=== PATIENT | male | born 1985 | race Two or more races ===

== ENCOUNTER 2018-09-22 04:35 | Emergency (ER) | payer SELFPAY ==
[2018-09-22 04:43] VITALS: BMI 27.3
[2018-09-22] MEDS ORDERED: Sodium Chloride 0.9% 1,000 ML IV STA (05:01)
--- NOTE | 2018-09-22 05:07 | ED PDOC ---
HPI: Psych/Substance Abuse Time Seen by Provider: 09/22/18 04:42 Chief Complaint (Nursing): Alcohol Ingestion Chief Complaint (Provider): Nausea, Vomiting, Alcohol Ingestion History Per: Patient, EMS History/Exam Limitations: no limitations Onset/Duration Of Symptoms: Days (x8) Current Symptoms Are (Timing): Still Present Additional Complaint(s): 32 year old male with history of alcoholism presents to the ED via EMS for evaluation of nausea and vomiting secondary to alcohol abuse for the last eight days. Patient reports that his recurrent vomiting includes, along with alcohol, fluids other than alcohol and food. Notes having poor appetite. Otherwise, denies fever, cough, shortness of breath, and chest pain. PMD: none provided Past Medical History Reviewed: Historical Data, Nursing Documentation, Vital Signs Vital Signs: Last Vital Signs Temp 98.6 F 09/22/18 04:43 Pulse 126 H 09/22/18 04:43 Resp 18 09/22/18 04:43 BP 155/114 H 09/22/18 04:43 Pulse Ox 98 09/22/18 04:43 - Medical History PMH: No Chronic Diseases - Surgical History Surgical History: No Surg Hx - Family History Family History: States: Unknown Family Hx - Social History Current smoker - smoking cessation education provided: No Alcohol: Other (admitted alcoholic) Drugs: Denies - Immunization History Hx Tetanus Toxoid Vaccination: No Hx Influenza Vaccination: Yes Hx Pneumococcal Vaccination: No - Home Medications Home Medications: Ambulatory Orders Medication Instructions Recorded Famotidine [Pepcid] 20 mg PO Q12 #14 tab 09/22/18 Ondansetron ODT [Zofran ODT] 4 mg PO Q6 PRN #8 odt 09/22/18 - Allergies Allergies/Adverse Reactions: Allergies Allergy/AdvReac Type Severity Reaction Status Date / Time No Known Allergies Allergy Verified 09/22/18 04:42 Review of Systems ROS Statement: Except As Marked, All Systems Reviewed And Found Negative Constitutional: Negative for: Fever Respiratory: Negative for: Cough, Shortness of Breath Gastrointestinal: Positive for: Nausea, Vomiting Psych: Positive for: Other (alcohol abuse) Physical Exam - Reviewed Nursing Documentation Reviewed: Yes Vital Signs Reviewed: Yes - Physical Exam Appears: Positive for: No Acute Distress Head Exam: Positive for: ATRAUMATIC, NORMOCEPHALIC Skin: Positive for: Normal Color, Warm, Dry Eye Exam: Positive for: Normal appearance ENT: Positive for: Normal ENT Inspection Neck: Positive for: Normal, Painless ROM, Supple Cardiovascular/Chest: Positive for: Tachycardia Respiratory: Positive for: Normal Breath Sounds. Negative for: Respiratory Distress Gastrointestinal/Abdominal: Positive for: Normal Exam, Soft, Tenderness (mild epigastric) Extremity: Positive for: Normal ROM Neurologic/Psych: Positive for: Alert (and awake) - Laboratory Results Result Diagrams: 09/22/18 05:10 09/22/18 05:10 - ECG O2 Sat by Pulse Oximetry: 98 (RA) Pulse Ox Interpretation: Normal Medical Decision Making Medical Decision Making: Time: 448 Initial Impression: 32 year old male presenting with recurrent vomiting in setting of known alcohol use Initial Plan: --CMP --Lipase chemistry --U-dip --CBC with differential --IV fluids --Zofran 4mg IV --Accucheck 0555 Labs reviewed for no clinically significant abnormalities. Patient is stable for discharge with diagnosis of gastritis and alcohol abuse. Provider counseled patient on importance of and need to moderate alcohol use. Scribe Attestation: Documented by Lorena Ortiz, acting as a scribe for Sage Gary MD. Provider Scribe Attestation: All medical record entries made by the Scribe were at my direction and personally dictated by me. I have reviewed the chart and agree that the record accurately reflects my personal performance of the history, physical exam, medical decision making, and the department course for this patient. I have also personally directed, reviewed, and agree with the discharge instructions and disposition. Disposition - Clinical Impression Clinical Impression: Gastritis - Patient ED Disposition Is Patient to be Admitted: No Counseled Patient/Family Regarding: Diagnosis - Disposition Referrals: [facility] [Outside] Disposition: Routine/Home Disposition Time: 05:56 Condition: STABLE Prescriptions: Famotidine [Pepcid] 20 mg PO Q12 #14 tab Ondansetron ODT [Zofran ODT] 4 mg PO Q6 PRN #8 odt PRN Reason: Nausea/Vomiting Instructions: Gastritis Forms: [facility] (Polish) Print Language: LAO
[2018-09-22 05:20] LABS: BASO % 0.3 % (0.0-2.0); HEMOGLOBIN 13.1 g/dL (12.0-18.0); LYMPH # 0.6 K/uL (1.0-4.3); LYMPH % 15.1 % (20.0-40.0); MEAN CELL VOLUME 93.4 fl (80.0-94.0); MEAN CORPUSCULAR HEMOGLOBIN 31.6 pg (27.0-31.0); MEAN CORPUSCULAR HGB CONC 33.8 g/dL (33.0-37.0); MEAN PLATELET VOLUME 9.5 fl (7.2-11.7); MONO # 0.6 K/uL (0.0-0.8); MONO % 13.8 % (0.0-10.0); NEUT # 2.8 K/uL (1.8-7.0); NEUT % 69.8 % (50.0-75.0); NRBC % 0.1 % (0.0-0.0); RBC 4.16 Mil/uL (4.40-5.90); RED CELL DISTRIBUTION WIDTH 13.5 % (11.5-14.5); WHITE BLOOD COUNT 4.1 K/uL (4.8-10.8)
[2018-09-22 05:27] VITALS: RESP 16
[2018-09-22 05:28] LABS: ALB/GLOB RATIO 1.6 (1.0-2.1); ALT/SGPT 60 U/L (21-72); AST/SGOT 95 U/L (17-59); BLOOD UREA NITROGEN 15 mg/dl (9-20); CALCIUM 10.5 mg/dL (8.4-10.2); GFR NON-AFRICAN AMERICAN > 60; LIPASE 495 U/L (23-300)
[2018-09-22 06:00] VITALS: O2SAT 98
[2018-09-22 06:24] VITALS: BP 128/85; PULSE 91; TEMP 98.8
== END 2018-09-22 06:15 | disposition home or self-care (01) ==
LOC: H.ER 04:35
DX: K29.70 Gastritis, unspecified, without bleeding (principal)
CPT/HCPCS: 80053; 82948; 83690; 85025; 96360; 99283; J2405; J7030